=== PATIENT | female | born 1980 | race Caucasian/White ===

== ENCOUNTER 2017-01-19 00:09 | Emergency (ER) | payer OTHER ==
[~2017-01-19] VITALS: Ht 160 cm; Wt 77.0 kg
[~2017-01-19 00:09] MED LIST: ACET1TAB40 PO; CEPH-443 PO; IBUP-1542 PO
[2017-01-19 00:17] VITALS: Ht 160 cm; Wt 77.0 kg
[2017-01-19] MEDS ORDERED: KETOROLAC 30 MG INJ IV STA (02:44)
[2017-01-19] MEDS ORDERED: ONDANSETRON 4 MG INJ IV STA (03:08)
--- NOTE | 2017-01-19 03:16 | ERD ---
ER Documentation Chief Complaint Date/Time DATE: 01/19/17 TIME: 03:14 Chief Complaint palpable cyst along the L side of ante neck,radiating to nape&head HPI 36-year-old female presents here in emergency department for complaints of a lump in the left side of the neck area, just under the neck, that she has noticed one month ago, it has been hurting her on and off, tonight, got worse, more swelling, sharp pains especially scale, is worse upon swallowing and touching the area. Patient did not take any medications to help with symptoms. Patient states that he radiates to the back of the neck and to the head area. ROS All systems reviewed and are negative except as per history of present illness. Medications Home Meds Active Scripts Ibuprofen* (Motrin*) 600 Mg Tab, 600 MG PO Q8, #30 TAB Prov:BETO BAUER, ENGINEERING INSTRUCTOR 04/25/16 Acetaminophen-Codeine* (Acetaminophen-Cod #3*) 300-30 Mg Tab, 1 TAB PO Q4H Y for PAIN, #12 TAB Prov:REGLA DUNN MD 02/17/15 Cephalexin* (Keflex*) 500 Mg Capsule, 500 MG PO QID for 5 Days, CAP Prov:REGLA DUNN MD 02/17/15 Ibuprofen* (Ibuprofen*) 600 Mg Tablet, 600 MG PO Q6, #20 TAB Prov:REGLA DUNN MD 02/17/15 Allergies Allergies: Coded Allergies: No Known Allergy (Unverified , 10/14/11) PMhx/Soc History of Surgery: Yes ( X3, TUMMY TUCK,rhinoplasty,reverse tubal) Anesthesia Reaction: No Hx Neurological Disorder: No Hx Respiratory Disorders: No Hx Cardiac Disorders: No Hx Psychiatric Problems: No Hx Miscellaneous Medical Probl: Yes (Anemia) Hx Alcohol Use: No Hx Substance Use: No Hx Tobacco Use: No Smoking Status: Never smoker FmHx Family History: No coronary disease, No diabetes, No other Physical Exam Vitals Vital Signs Date Time Temp Pulse Resp B/P Pulse Ox O2 Delivery O2 Flow Rate FiO2 01/19/17 00:17 98.2 96 20 118/82 100 Physical Exam GENERAL: The patient is well developed and appropriate for usual state of health, in no apparent distress. NECK: noted tenderness on palpation of left submental area, noted lump 2 cm diameter, no stridor CHEST: Clear to auscultation bilaterally. There are no rales, wheezes or rhonchi. HEART: Regular rate and rhythm. No murmurs, clicks, rubs or gallops. No S3 or S4. ABDOMEN: Soft, nontender and nondistended. Good bowel sounds. No rebound or guarding. No gross peritonitis. No gross organomegaly or masses. No Friend sign or McBurney point tenderness. BACK: No midline or flank tenderness. EXTREMITIES: Equal pulses bilaterally. There is no peripheral clubbing, cyanosis or edema. No focal swelling or erythema. Full range of motion. Grossly neurovascularly intact. NEURO: Alert and oriented. Cranial nerves 2-12 intact. Motor strength in all 4 extremities with 5/5 strength. Sensation grossly intact. Normal speech and gait. SKIN: There is no apparent rash or petechia. The skin is warm and dry. HEMATOLOGIC AND LYMPHATIC: There is no evidence of excessive bruising or lymphedema. No gross cervical, axillary, or inguinal lymphadenopathy. Result Diagram: 01/19/17 0308 Results 24 hrs Laboratory Tests Test 01/19/17 03:08 Sodium Level 143mmol/L Potassium Level 4.2mmol/L Chloride Level 104mmol/L Carbon Dioxide Level 25mmol/L Anion Gap 18 Blood Urea Nitrogen 13mg/dl Creatinine 0.48mg/dl Glucose Level 91mg/dl Calcium Level 9.0mg/dl Total Bilirubin 0.0mg/dl Direct Bilirubin 0.00mg/dl Indirect Bilirubin 0.0mg/dl Aspartate Amino Transf (AST/SGOT) 18IU/L Alanine Aminotransferase (ALT/SGPT) 27IU/L Alkaline Phosphatase 99IU/L Total Protein 7.5g/dl Albumin 3.8g/dl Globulin 3.70g/dl Albumin/Globulin Ratio 1.02 Current Medications Medications (Trade) Dose Ordered Sig/Brown Route PRN Reason Start Time Stop Time Status Last Admin Dose Admin Ketorolac Tromethamine (Toradol) 30 mg ONCE STAT IV 01/19/17 02:44 01/19/17 02:45 DC 01/19/17 03:13 Ondansetron HCl 4 mg 4 mg ONCE STAT IV 01/19/17 03:08 01/19/17 03:09 DC 01/19/17 03:12 Sodium Chloride (NS) 100 ml @ ud STK-MED ONCE .ROUTE 01/19/17 04:16 01/19/17 04:17 DC Iohexol (Omnipaque 300mg/ ml) 150 ml STK-MED ONCE .ROUTE 01/19/17 04:16 01/19/17 04:17 DC Patient was given medication for pain here in emergency department, after treatment, patient verbalized feeling much better. Patient's pain is improved.Patient was given Zofran here in the emergency department. After treatment, patient was able to tolerate po fluids here in the emergency department without any vomiting. There is no signs and symptoms of dehydration. PROCEDURE: CT soft tissue neck with contrast CLINICAL INDICATION: neck pain bump TECHNIQUE: The study was performed utilizing a GE 64-slice multidetector CT scanner. Direct thin section helically acquired axial sections were obtained through the neck after the uneventful intravenous administration of 100 cc of Omnipaque-300. Coronal and sagittal reformations were obtained. The images were reviewed on a PACS workstation. The total CTDIvol is 8.43 mGy and the DLP is 226.5 mGy-cm. COMPARISON: No prior studies are available for comparison. FINDINGS: No mass is identified in the nasopharynx, oropharynx, hypopharynx, and larynx.. The epiglottis, vallecula, piriform sinuses and aryepiglottic folds are normal. The tongue, tongue base and floor of the mouth are unremarkable. There is a defined, homogeneous cystic lesion below the hyoid bone left of midline measuring 10 x 11 x 15 mm. No abnormal enhancement or inflammatory changes are seen. The thyroid gland is normal in size with no focal mass lesions seen. The submandibular and parotid glands are unremarkable and normal in appearance. No pathologically enlarged lymph nodes are detected. The vascular structures are normal. No osteolytic or blastic lesion is evident. The lung apices are clear. The visualized paranasal sinuses are well pneumatized. IMPRESSION: 1.0 x 1.1 x 1.5 cm cyst in the anterior neck, below the hyoid bone, left of midline which likely represents a thyroglossal duct cyst. Physician Kaylie Date Time Electronically viewed and signed by Physician Kaylie on 01/19/2017 05: 28 CS/ CC: GAGAN REYNA NP Procedures/MDM Medical decision making: Patient's symptoms most active consistent with her thyroglossal cyst noted in the CT scan, no oral airway obstruction noted. No abscesses noted. Patient was advised to follow with ENT specialist for possible removal, patient will be given prescription for ibuprofen for pain, is advised to return to emergency department for any worsening symptoms. Disposition: Home. Stable. Departure Diagnosis: Primary Impression: Thyroglossal duct cyst Condition: Stable Additional Instructions: see ENT specialist for possible removal of cyst GAGAN REYNA NP Jan 19, 2017 03:16
[2017-01-19 03:51] LABS: ALBUMIN 3.8 g/dl (3.3-4.9); ALBUMIN/GLOBULIN RATIO 1.02; CREATININE 0.48 mg/dl (0.44-1.00); POTASSIUM 4.2 mmol/L (3.5-5.1); TOTAL PROTEIN 7.5 g/dl (6.1-8.1)
[2017-01-19] MEDS ORDERED: SOD CHLORIDE 0.9% 100 ML ONE (04:16)
[2017-01-19] MEDS ORDERED: IOHEXOL 300MG/ML 150 ML BTL ONE (04:16)
--- NOTE | 2017-01-19 05:29 | RADRPT ---
PROCEDURE: CT soft tissue neck with contrast CLINICAL INDICATION: neck pain bump TECHNIQUE: The study was performed utilizing a GE 64-slice multidetector CT scanner. Direct thin s ection helically acquired axial sections were obtained through the neck after the uneventful intrave nous administration of 100 cc of Omnipaque-300. Coronal and sagittal reformations were obtained. The images were reviewed on a PACS workstation. The total CTDIvol is 8.43 mGy and the DLP is 226.5 mGy- cm. COMPARISON: No prior studies are available for comparison. FINDINGS: No mass is identified in the nasopharynx, oropharynx, hypopharynx, and larynx.. The epiglottis, brenda lecula, piriform sinuses and aryepiglottic folds are normal. The tongue, tongue base and floor of th e mouth are unremarkable. There is a defined, homogeneous cystic lesion below the hyoid bone left of midline measuring 10 x 11 x 15 mm. No abnormal enhancement or inflammatory changes are seen. The thyroid gland is normal in size with no focal mass lesions seen. The submandibular and parotid gla nds are unremarkable and normal in appearance. No pathologically enlarged lymph nodes are detected. The vascular structures are normal. No osteolytic or blastic lesion is evident. The lung apices are clear. The visualized paranasal sinuses are well pneumatized. IMPRESSION: 1.0 x 1.1 x 1.5 cm cyst in the anterior neck, below the hyoid bone, left of midline which likely rep resents a thyroglossal duct cyst. Physician Kaylie Date Time Electronically viewed and signed by Physician Kaylie on 01/19/2017 05:28 WILBERT/
[2017-01-19] MEDS ORDERED: IBUP-1542 PO (05:39)
[2017-01-19 05:56] VITALS: BP 112/77; PULSE 81; RESP 20; TEMP 98.2
== END 2017-01-19 05:57 | disposition home or self-care (01) ==
LOC: FTE 00:09
DX: Q89.2 Congenital malformations of other endocrine glands (principal)
CPT/HCPCS: 70491; 80053; 96374; 96375; J1885; J2405; Q9967; Z7502; Z7610

== ENCOUNTER 2018-04-02 15:11 | Emergency (ER) | END 2018-04-02 19:54 | disposition home or self-care (01) ==

== ENCOUNTER 2018-06-24 18:49 | Emergency (ER) | payer OTHER ==
[~2018-06-24] VITALS: Ht 160 cm; Wt 79.7 kg
[2018-06-24 19:08] VITALS: Ht 160 cm; Wt 79.7 kg
[2018-06-24] MEDS ORDERED: ACETAMINOPHEN 325 MG TAB PO STA (20:58)
--- NOTE | 2018-06-24 21:11 | ERD ---
ER Documentation Chief Complaint Chief Complaint scanty vag bleed LMP 05/14/18 HPI 37-year-old female who had a positive home test present ED complaining of lower pelvic pain since yesterday, and vaginal bleeding today. Patient described pain as cramp like, and comes and goes. She had 2 episodes vaginal bleeding while on the toilet. No blood in the underwear. Patient is , LMP 05/14/2018. Patient also reports feeling dizzy. Denies fever or chills. Denies dysuria. ROS All systems reviewed and are negative except as per history of present illness. Medications Home Meds Active Scripts Acetaminophen* (Tylophen*) 500 Mg Capsule, 1 CAP PO Q6H PRN for PAIN AND OR ELEVATED TEMP, #20 CAP Prov:MONIQUE GONZALES AZURE DEVELOPER 06/24/18 Ibuprofen* (Motrin*) 600 Mg Tab, 600 MG PO Q6, #30 TAB Prov:ALICIA HAYDEN PA-C 04/02/18 Ibuprofen* (Motrin*) 600 Mg Tab, 600 MG PO Q6H PRN for PAIN AND OR ELEVATED TEMP, #30 TAB Prov:GAGAN REYNA NP 01/19/17 Ibuprofen* (Motrin*) 600 Mg Tab, 600 MG PO Q8, #30 TAB Prov:BETO BAUER NP 04/25/16 Acetaminophen-Codeine* (Acetaminophen-Cod #3*) 300-30 Mg Tab, 1 TAB PO Q4H PRN for PAIN, #12 TAB Prov:REGLA DUNN MD 02/17/15 Cephalexin* (Keflex*) 500 Mg Capsule, 500 MG PO QID for 5 Days, CAP Prov:REGLA DUNN MD 02/17/15 Ibuprofen* (Ibuprofen*) 600 Mg Tablet, 600 MG PO Q6, #20 TAB Prov:REGLA DUNN MD 02/17/15 Allergies Allergies: Coded Allergies: No Known Allergy (Unverified , 10/14/11) PMhx/Soc History of Surgery: Yes ( X3, TUMMY TUCK,rhinoplasty,reverse tubal) Anesthesia Reaction: No Hx Neurological Disorder: No Hx Respiratory Disorders: No Hx Cardiac Disorders: No Hx Psychiatric Problems: No Hx Miscellaneous Medical Probl: Yes (Anemia) Hx Alcohol Use: No Hx Substance Use: No Hx Tobacco Use: No Smoking Status: Never smoker Physical Exam Vitals Vital Signs Date Temp Pulse Resp B/P (MAP) Pulse Ox O2 O2 Flow FiO2 Time Delivery Rate 06/24/18 99.0 4 18 132/70 99 19:08 (90) Physical Exam General: Well-developed, well-nourished, conscious and coherent, in no distress Skin: Warm and dry without rash, good texture and turgor Head: Normocephalic without evidence of trauma Chest: Normal AP diameter. Good expansion without retractions. Nontender. Lungs are clear to auscultate bilaterally with good tidal volume Heart: Regular rate and rhythm. No murmur, rub, or gallops heard Abdomen: Soft and nontender without masses, guarding, or rebound. Bowel sounds are active. No hepatosplenomegaly Back: Without spinal or CVA tenderness Pelvis: Suprapubic tenderness Extremities: Full range of motion. Good strength bilaterally. No erythema, ecchymosis, or edema. Peripheral pulses are intact. Sensation intact Neuro: Alert and oriented 4, GCS 15. Result Diagram: 06/24/182114 Results 24 hrs Laboratory Tests Test 06/24/18 21:15 White Blood Count 8.6 10^3/ul Red Blood Count 4.84 10^6/ul Hemoglobin 11.4 g/dl Hematocrit 36.7 % Mean Corpuscular Volume 75.8 fl Mean Corpuscular Hemoglobin 23.6 pg Mean Corpuscular Hemoglobin Concent 31.1 g/dl Red Cell Distribution Width 16.3 % Platelet Count 384 10^3/UL Mean Platelet Volume 9.4 fl Immature Granulocytes % 0.200 % Neutrophils % 59.4 % Lymphocytes % 30.7 % Monocytes % 8.4 % Eosinophils % 1.0 % Basophils % 0.3 % Nucleated Red Blood Cells % 0.0 /100WBC Immature Granulocytes # 0.020 10^3/ul Neutrophils # 5.1 10^3/ul Lymphocytes # 2.6 10^3/ul Monocytes # 0.7 10^3/ul Eosinophils # 0.1 10^3/ul Basophils # 0.0 10^3/ul Nucleated Red Blood Cells # 0.0 10^3/ul Urine Color YELLOW Urine Clarity CLEAR Urine pH 6.0 Urine Specific [place] 1.027 Urine Ketones NEGATIVE mg/dL Urine Nitrite NEGATIVE mg/dL Urine Bilirubin NEGATIVE mg/dL Urine Urobilinogen 1+ mg/dL Urine Leukocyte Esterase NEGATIVE Cathy/ul Urine Hemoglobin NEGATIVE mg/dL Urine Glucose NEGATIVE mg/dL Urine Total Protein NEGATIVE mg/dl Beta HCG, Quantitative 1364.7 mIU/ml Current Medications Medications Dose Sig/Brown Start Time Status Last (Trade) Ordered Route PRN Stop Time Admin Dose Reason Admin 650 mg ONCE STAT 06/24/18 DC 06/24/18 Acetaminophen PO 20:58 06/24/18 21:46 (Tylenol 20:59 Tab) PROCEDURE: US OB. CLINICAL INDICATION: Positive , vaginal bleeding TECHNIQUE: Transabdominal and transvaginal views of the pelvis are available for review. COMPARISON: 04/02/2018 FINDINGS: Uterus: Rounded intramural posterior uterine corpus hypoechoic leiomyoma and estimated at 3.2 x 3.1 X 3.1 cm. Overall uterine size estimated 7.9 x 6.7 x 5.7 cm. Cervix: Ovoid anechoic structures compatible with Nabothian cysts seen on the prior examination the largest measuring 1.4 x 1.1 cm.. Endometrial cavity: No intrauterine is identified, the thickness is normal measuring 4.5 mm. Right ovary / adnexa: Ovarian size is normal measuring 3.1 x 2.7 x 1.6 cm and there is no evidence of adnexal mass. Normal blood flow on Doppler interrogation is present. Left ovary/adnexa: Ovarian size is normal measuring 2.9 x 2.6 x 1.6 cm with no evidence of ovarian or adnexal mass. Normal blood flow seen on Doppler interrog ation. Cul-de-sac: A small amount of free fluid is identified possibly physiologic. RPTAT:HJJR IMPRESSION: 1. No intrauterine identified. Ectopic is not excluded, but there are no suspicious findings at this time. Correlation with serial beta HCGs is suggested with followup as clinically indicated. 2. Posterior uterine corpus intramural leiomyoma of approximate 3.2 cm is again noted. 3. Nabothian cyst of the cervix is again seen. John Suarez, Physician Date Time Electronically viewed and signed by John Suarez Physician on 06/24/2018 22:15 JR/ CC: MONIQUE GONZALES AZURE DEVELOPER Procedures/MDM ED course: CBC: No evidence of severe anemia or infection. Beta hC.7 UA: No evidence of urinary tract infection. Blood type: O+. RhoGAM is not indicated for patient. OB ultrasound: No intrauterine is noted. Medical decision-making: Patient with positive test present ED with pelvic pain and vaginal bleeding. No intrauterine gestation is noted on ultrasound. It is possible that patient may have had a spontaneous miscarriage. However, given the patient's beta hCG quant is 1364 I cannot rule out ectopic . Patient is informed of the testing and imaging results. Patient advised to follow-up with her PCP or OB in 2 days for repeat beta hCG quant testing. Spontaneous and ectopic instructions and return precautions provided. Medications on discharge: Tylenol. Follow-up: Primary care provider in 2 days or return to ED if worse. Departure Diagnosis: Primary Impression: Vaginal bleeding in patient at less than 20 weeks ges... Condition: Stable MONIQUE GONZALES NP Jun 24, 2018 21:11
[2018-06-24] MEDS ORDERED: ACET500C5 PO (22:47)
[2018-06-24 23:03] VITALS: BP 135/81; PULSE 86; RESP 18
== END 2018-06-24 23:06 | disposition home or self-care (01) ==
LOC: FTE 18:49
DX: O20.9 Hemorrhage in early pregnancy, unspecified (principal); R10.2 Pelvic and perineal pain; R40.2412 Glasgow coma scale score 13-15, at arrival to emergency department; Z3A.00 Weeks of gestation of pregnancy not specified
CPT/HCPCS: 76801; 76817; 81003; 84702; 85025; 86900; 86901; Z7610; 36415